=== PATIENT | female | born 1990 | race Two or more races ===

== ENCOUNTER 2017-04-03 14:55 | Observation (INO) | payer MEDICAID | END 2017-04-03 16:45 | disposition home or self-care (01) | DRG 566 | LOC: LDRP 14:55 | PROVIDERS: ADMIT Specialist; ATTEND Specialist | DX: O32.1XX0 Maternal care for breech presentation, not applicable or unspecified (principal); Z3A.31 31 weeks gestation of pregnancy | CPT/HCPCS: 59025; 76815; 81002; G0378 ==

== ENCOUNTER 2017-04-12 20:40 | Observation (INO) | payer MEDICAID ==
[2017-04-12] MEDS ORDERED: LACTATED RINGER'S 1,000 ML IV ONE (21:22)
[2017-04-12] MEDS ORDERED: IBUPROFEN 800 MG TAB PO ONE ×2 (21:30→21:42)
== END 2017-04-12 22:34 | disposition home or self-care (01) | DRG 566 ==
LOC: LDRP 20:40
PROVIDERS: ADMIT Specialist; ATTEND Specialist
DX: O26.892 Other specified pregnancy related conditions, second trimester (principal); M54.9 Dorsalgia, unspecified; Z3A.22 22 weeks gestation of pregnancy
CPT/HCPCS: 59025; 81002; G0378